=== PATIENT | female | born 1955 | race Caucasian/White ===

== ENCOUNTER 2016-02-25 12:13 | Emergency (ER) | payer OTHER ==
--- NOTE | 2016-02-25 13:04 | ED Physician Documentation ---
Upper Respiratory Symptoms - HISTORIAN Historian: patient - HPI Stated Complaint: cough Chief Complaint: Cough/ Upper Respiratory Onset: days ago (2 days) Duration: constant Severity: moderate Associated Symptoms: fever (not sure how high), chills Worsened by Deep Breath: No - ROS CONST/EYES: weakness - PAST HX Lung Disease: none Allergies/Adverse Reactions: Allergies Allergy/AdvReac Type Severity Reaction Status Date / Time No Known Allergies Allergy Verified 02/25/16 12:34 Home Medications: Ambulatory Orders Medication Instructions Recorded Azithromycin [Zithromax] 250 mg PO QD #6 tablet 02/25/16 - SOCIAL HX Smoking History: non-smoker Alcohol Use: none Drug Use: none - FAMILY HX Family History: none - VITAL SIGNS Vital Signs: Vital Signs Temp Pulse Resp BP Pulse Ox 98.8 F 88 18 144/66 94 02/25/16 12:30 02/25/16 12:30 02/25/16 12:30 02/25/16 12:30 02/25/16 12:30 - REVIEWED ASSESSMENTS Nursing Assessment Reviewed: Yes Vitals Reviewed: Yes Upper Respiratory Symptoms - EXAM General Appearance: no acute distress, alert EENT: PERRL, ear nml Neck: normal inspection Respiratory: no pain on inspiration, speaks full sentences, rhonchi (few scattered bilaterally). No: respiratory distress Abdomen: non-tender CVS: reg rate & rhythm, heart sounds normal, equal pulses Skin: color nml, no rash, warm,dry Extremities: non-tender, normal range of motion Neuro/Psych: oriented x3, neuro intact, mood/affect nml Discharge Clincal Impression: Bronchitis Additional Instructions: Drink a lot of fluids, take Azithromycin as directed. Take some Mucinex if needed to help break up the cough. If symptoms do not improve or get worse to follow-up with your primary care provider or return to the ED. Home Medications: Ambulatory Orders Azithromycin [Zithromax] 250 mg PO QD #6 tablet 02/25/16 Condition: Stable Disposition: 01 HOME, SELF-CARE Decision to Admit: NO Date of Decison to Admit: 02/25/16 Decision Time: 13:04
[2016-02-25 14:25] VITALS: BP 169/89
== END 2016-02-25 13:14 | disposition home or self-care (01) ==
LOC: ED 12:13
DX: J20.9 Acute bronchitis, unspecified (principal)
CPT/HCPCS: 99282